=== PATIENT | female | born 1995 | race Caucasian/White ===

== ENCOUNTER 2021-09-26 21:49 | Inpatient (IN) ==
[2021-09-26] MEDS ORDERED: *HR* Nalbuphine 10 MG/ML AMPUL IV PRN (22:04)
[2021-09-26] MEDS ORDERED: Naloxone 0.4 MG/ML INJ IVP PRN (22:04)
[2021-09-26] MEDS ORDERED: Penicillin G Potassium 5,000,000 UNIT in 0.9 % Sodium Chloride Mini Bag 100 ML IVPB ONE (22:04)
[2021-09-26] MEDS ORDERED: Azithromycin 500 MG in 0.9 % Sodium Chloride 250 ML IVPB PRN (22:04)
[2021-09-26] MEDS ORDERED: Ondansetron 4 MG/2 ML VIAL IVP PRN (22:04)
[2021-09-26] MEDS ORDERED: Metoclopramide 10 MG/2 ML VIAL IVP PRN (22:04)
[2021-09-26] MEDS ORDERED: Famotidine 20 MG/2 ML VIAL IVP PRN (22:04)
[2021-09-26 22:53] LABS: Basophils # 0.1 K/mcL (0.0-0.2); Basophils % 0.5 %; Eosinophils # 0.2 K/mcL (0.0-0.6); Eosinophils % 1.4 %; Hematocrit 39.6 % (35.3-44.9); Hemoglobin 12.9 g/dL (11.5-15.4); Immature Granulocytes % 1.4 % (0-4); Lymphocytes # 2.7 K/mcL (0.6-4.6); Lymphocytes % 21.9 %; Mean Corpuscular HGB Conc 32.6 g/dL (31.6-35.5); Mean Corpuscular Hemoglobin 28.8 pg (28.0-33.3); Mean Corpuscular Volume 88.4 fL (83.0-100.0); Mean Platelet Volume 12.5 fL (9.4-12.4); Monocytes # 0.8 K/mcL (0.0-1.3); Monocytes % 6.2 %; Neutrophils # 8.5 K/mcL (1.6-8.9); Nucleated Red Blood Cells 0.2 /100 WBC (0); Platelet Count 252 K/mcL (140-400); Red Blood Count 4.48 M/mcL (3.82-4.97); Red Cell Distribution Width 14.3 % (11.5-14.5); Segmented Neutrophils % 68.6 %; White Blood Count 12.4 K/mcL (4.3-11.1)
[2021-09-26 23:27] LABS: Influenza A PCR Negative (Negative); Influenza B PCR Negative (Negative); Resp. Syncytial Virus PCR Negative (Negative)
[2021-09-26 23:28] LABS: SARS-CoV-2 by PCR (In House) Negative (Negative)
[2021-09-26] MEDS ORDERED: EPHEDrine 50 MG/ML VIAL IVP PRN (23:28)
[2021-09-26 23:30] LABS: Amphetamine Screen,Urine Negative ng/mL (Cutoff=1000); Barbiturate Screen,Urine Negative ng/mL (Cutoff=200); Benzodiazepines Screen,Urine Negative ng/mL (Cutoff=200); Cannabinoid Screen,Urine Negative ng/mL (Cutoff = 50); Cocaine Screen,Urine Negative ng/mL (Cutoff= 300); Opiate Screen,Urine Negative ng/mL (Cutoff=300); Phencyclidine Screen,Urine Negative ng/mL (Cutoff=25)
[2021-09-26] MEDS ORDERED: Epidural Premix (fent/bupiv) 110 ML EP SCH (23:30)
[2021-09-27] MEDS ORDERED: miSOPROStoL 25 MCG TABLET PO STA (00:14)
[2021-09-27] MEDS: Ringers Solution, Lactated 1,000 ML IVC SCH ×3 (00:32→20:53)
[2021-09-27 02:46] LABS: Alanine Aminotransferase 79 Units/L (7-52); Aspartate Amino Transferase 44 Units/L (13-39); BUN/Creatinine Ratio 19 (6-26); Blood Urea Nitrogen 9 mg/dL (6-20); Lactate Dehydrogenase 186 Units/L (140-271); Uric Acid 4.5 mg/dL (2.3-7.6); eGFR For African Americans > 60 (> 60); eGFR For Non-African Americans > 60 (> 60)
[2021-09-27 03:54] LABS: Creatinine,Urine 91 mg/dL; Protein/Creatinine Ratio,Urine 0.15 mg/mg (0.00-0.20)
[2021-09-27] MEDS: Penicillin G Potassium 2,500,000 UNIT/105 ML MLS IVPB SCH ×5 (04:14→19:54)
[2021-09-27] MEDS: Oxytocin 30 UNIT/503 ML BAG IVC SCH (08:04)
[2021-09-27] MEDS ORDERED: *HR* FentaNYL (PF) 100 MCG/2 ML VIAL EP ONE (10:15)
[2021-09-27] MEDS ORDERED: Naloxone 0.4 MG/ML INJ IVP PRN (10:15)
[2021-09-27] MEDS ORDERED: EPHEDrine 50 MG/ML VIAL IVP PRN (10:15)
[2021-09-27] MEDS ORDERED: Ropivacaine/PF 0.2% 20 ML VIAL EP ONE (10:15)
[2021-09-27] MEDS ORDERED: Epidural Premix (fent/bupiv) 110 ML EP SCH (10:15)
[2021-09-27] MEDS ORDERED: Ondansetron 4 MG/2 ML VIAL IVP PRN (10:15)
[2021-09-28] MEDS: Oxytocin 30 UNIT/503 ML BAG IVC SCH (00:13)
[2021-09-28] MEDS: Ringers Solution, Lactated 1,000 ML IVC SCH ×2 (00:14→04:23)
[2021-09-28] MEDS: Penicillin G Potassium 2,500,000 UNIT/105 ML MLS IVPB SCH ×2 (00:15→04:24)
[2021-09-28] MEDS ORDERED: CeFAZolin Syr 3,000MG/30 ML 3,000 MG/30 ML SYRINGE IVPB ONE (06:10)
[2021-09-28] MEDS ORDERED: Ropivacaine/PF 0.2% 20 ML VIAL ONE (06:32)
[2021-09-28] MEDS ORDERED: Lidocaine/EPI 1:200k 2% PF 20 ML VIAL ONE (06:48)
[2021-09-28] MEDS ORDERED: Ringers Solution, Lactated 1,000 ML ONE (07:10)
[2021-09-28] MEDS ORDERED: Ondansetron 4 MG/2 ML VIAL ONE (07:23)
[2021-09-28] MEDS ORDERED: *HR* Morphine Sulfate/PF 10 MG/10 ML AMPUL ONE (07:29)
[2021-09-28] MEDS ORDERED: Acetaminophen IV 1,000 MG/100 ML BAG IVPB ONE (07:30)
[2021-09-28] MEDS ORDERED: Ketorolac 30 MG/ML VIAL ONE (07:32)
[2021-09-28] MEDS ORDERED: *HR* Enoxaparin 60 MG/0.6 ML SYRINGE SQ SCH (10:36)
[2021-09-28] MEDS ORDERED: Oxytocin 30 UNIT/503 ML BAG IVC SCH (10:36)
[2021-09-28] MEDS ORDERED: Metoclopramide 10 MG/2 ML VIAL IVP PRN (10:36)
[2021-09-28] MEDS ORDERED: OXYTOCIN/RINGERS LACTATE 10 UNIT/166.6 ML BAG IVC ONE (10:36)
[2021-09-28] MEDS ORDERED: Ondansetron 4 MG/2 ML VIAL IVP PRN (10:36)
[2021-09-28] MEDS: metroNIDAZOLE 500 MG TABLET PO SCH ×3 (12:24→21:33)
[2021-09-28] MEDS: Ibuprofen 600 MG TABLET PO SCH (12:24)
[2021-09-28] MEDS: cephALEXin 500 MG CAPSULE PO SCH ×3 (12:24→21:32)
[2021-09-28] MEDS: Prenatal Vit/FA 1 EACH TABLET PO SCH (12:24)
[2021-09-28] MEDS: Acetaminophen 325 MG TABLET PO SCH ×2 (15:34→21:32)
[2021-09-28] MEDS: *HR* Enoxaparin 60 MG/0.6 ML SYRINGE SQ SCH (21:31)
[2021-09-29] MEDS: *HR* OxyCODONE Immed Rel 5 MG TABLET PO PRN ×2 (01:59→20:37)
[2021-09-29] MEDS: Acetaminophen 325 MG TABLET PO SCH ×3 (04:58→18:35)
[2021-09-29] MEDS: Ibuprofen 600 MG TABLET PO SCH ×3 (04:59→18:35)
[2021-09-29] MEDS: metroNIDAZOLE 500 MG TABLET PO SCH ×3 (10:05→20:36)
[2021-09-29] MEDS: Prenatal Vit/FA 1 EACH TABLET PO SCH (10:06)
[2021-09-29] MEDS: cephALEXin 500 MG CAPSULE PO SCH ×3 (10:06→20:36)
[2021-09-29] MEDS: *HR* Enoxaparin 60 MG/0.6 ML SYRINGE SQ SCH ×2 (10:07→20:37)
[2021-09-29] MEDS: Simethicone 80 MG TAB.CHEW PO PRN (16:09)
[2021-09-29 20:48] VITALS: O2SAT 99
[2021-09-30] MEDS: Ibuprofen 600 MG TABLET PO SCH (06:33)
[2021-09-30] MEDS: Acetaminophen 325 MG TABLET PO SCH (06:34)
[2021-09-30 07:12] VITALS: BP 112/66; TEMP 98.3
[2021-09-30] MEDS: *HR* OxyCODONE Immed Rel 5 MG TABLET PO PRN (09:00)
[2021-09-30] MEDS: Prenatal Vit/FA 1 EACH TABLET PO SCH (09:00)
[2021-09-30] MEDS: Simethicone 80 MG TAB.CHEW PO PRN (09:00)
[2021-09-30] MEDS: *HR* Enoxaparin 60 MG/0.6 ML SYRINGE SQ SCH (09:01)
[2021-09-30 09:22] VITALS: PULSE 88
== END 2021-09-30 12:00 | disposition home or self-care (01) | DRG 540 ==
LOC: 1NENULAB 21:49 → 1NENUOBS 09-28 10:27
PROVIDERS: ADMIT Registered Nurse; ATTEND Registered Nurse